=== PATIENT | male | born 1955 | race Caucasian/White ===

== ENCOUNTER 2023-05-16 12:22 | Observation (INO) ==
[2023-05-16] MEDS: Lactated Ringers 1000 ml BAG 1,000 ML IV ONE ×2 (13:29→14:58)
[2023-05-16 13:52] LABS: Hematocrit 31.4 % (38-53); Hemoglobin 10.4 g/dL (13.2-16.3); Mean Corpuscular Hemoglobin 28.1 pg (27-33); Mean Corpuscular Hgb Conc 33.2 g/dL (31-36); Mean Corpuscular Volume 84.5 fL (80-97); Mean Platelet Volume 7.7 fL (7.5-11.2); Platelet Count 767 10^3/uL (150-450); Red Blood Count 3.72 10^6/uL (4.06-5.63); Red Cell Distribution Width 15.8 % (12-17); White Blood Count 14.7 10^3/uL (3.6-10.2)
[2023-05-16 14:22] LABS: ABS Basophils 0.2 10^3/uL (0.0-0.1); ABS Eosinophils 3.8 10^3/uL (0.0-0.5); ABS Lymphocytes 3.5 10^3/uL (1.0-4.8); ABS Monocytes 0.8 10^3/uL (0.0-1.1); ABS Neutrophils 6.5 10^3/uL (1.5-7.6); ABS Nucleated RBC 0.04 10^3/ul; Albumin 2.2 g/dL (3.2-5.2); C Reactive Protein 71.02 mg/L (<8.01); Calcium 7.9 mg/dL (8.6-10.3); Creatinine, Serum 2.93 mg/dL (0.67-1.17); Eosinophil % 25.9 %; Globulin 2.3 g/dL (2-4); Lymphocyte % 23.5 %; Magnesium 1.9 mg/dL (1.9-2.7); Nucleated Red Blood Cells % 0.2 %/100WBC (0.0-0.8); Potassium 4.6 mmol/L (3.5-5.0); Total Bilirubin 0.4 mg/dL (0.2-1.0); Total Protein 4.5 g/dL (6.4-8.9); eGFR CKD-EPI 22.6 (>60)
[2023-05-16 18:21] LABS: Calcium 7.7 mg/dL (8.6-10.3); Creatinine, Serum 2.7 mg/dL (0.67-1.17); Potassium 4.6 mmol/L (3.5-5.0); eGFR CKD-EPI 24.9 (>60)
[2023-05-16] MEDS ORDERED: FLUOCINONIDE 0.05% TOPICAL PRN (18:43)
[2023-05-16] MEDS ORDERED: Albuterol HFA INHALER 8 gm MDI INH PRN (18:43)
[2023-05-16] MEDS: Lactated Ringers 1000 ml BAG 1,000 ML IV SCH (18:46)
[2023-05-16] MEDS: Triamcinolone 0.5% OINT 1 TUBE TOPICAL SCH (20:45)
[2023-05-16] MEDS: Heparin 5000 UNITS/ML 1 mL VIAL SUBCUT SCH (20:48)
[2023-05-17 00:35] LABS: Urine Appearance Clear; Urine Bilirubin Negative (Negative); Urine Blood Negative (Negative); Urine Color Yellow; Urine Glucose Negative (Negative); Urine Ketones Negative (Negative); Urine Nitrite Negative (Negative); Urine Protein Trace (Negative); Urine Specific Gravity 1.017 (1.002-1.030); Urine Urobilinogen Negative (Negative)
[2023-05-17 05:26] LABS: Hematocrit 28.2 % (38-53); Hemoglobin 9.5 g/dL (13.2-16.3); Mean Corpuscular Hemoglobin 28.5 pg (27-33); Mean Corpuscular Hgb Conc 33.8 g/dL (31-36); Mean Corpuscular Volume 84.2 fL (80-97); Mean Platelet Volume 7.9 fL (7.5-11.2); Platelet Count 696 10^3/uL (150-450); Red Blood Count 3.35 10^6/uL (4.06-5.63); Red Cell Distribution Width 16.4 % (12-17); White Blood Count 13.5 10^3/uL (3.6-10.2)
[2023-05-17 05:44] LABS: Calcium 8.1 mg/dL (8.6-10.3); Creatinine, Serum 2.69 mg/dL (0.67-1.17); Potassium 4.7 mmol/L (3.5-5.0)
[2023-05-17 05:58] LABS: ABS Basophils 0.2 10^3/uL (0.0-0.1); ABS Eosinophils 4.4 10^3/uL (0.0-0.5); ABS Lymphocytes 2.8 10^3/uL (1.0-4.8); ABS Monocytes 0.5 10^3/uL (0.0-1.1); ABS Neutrophils 5.6 10^3/uL (1.5-7.6); ABS Nucleated RBC 0.03 10^3/ul; Eosinophil % 32.9 %; Lymphocyte % 20.9 %; Nucleated Red Blood Cells % 0.2 %/100WBC (0.0-0.8)
[2023-05-17] MEDS: SPIRIVA Respimat (tiotropium) 2.5 mcg/inh Inhaler INH SCH (07:29)
[2023-05-17] MEDS: Aspirin EC 81 mg TAB.EC (enteric coated) PO SCH (09:04)
[2023-05-17] MEDS: Lactated Ringers 1000 ml BAG 1,000 ML IV ONE (09:50)
[2023-05-17 10:33] LABS: Direct Bilirubin 0.2 mg/dL (0.03-0.18); Globulin 2.1 g/dL (2-4); Indirect Bilirubin 0.2 mg/dL (0.3-1.0); Total Bilirubin 0.4 mg/dL (0.2-1.0); Total Protein 4.1 g/dL (6.4-8.9)
[2023-05-17] MEDS: Lactated Ringers 1000 ml BAG 1,000 ML IV SCH (12:07)
[2023-05-17] MEDS: Cetirizine 5 mg CHEW TAB PO SCH (21:04)
[2023-05-18 05:48] LABS: Hematocrit 30.7 % (38-53); Hemoglobin 10.2 g/dL (13.2-16.3); Mean Corpuscular Hemoglobin 28.1 pg (27-33); Mean Corpuscular Hgb Conc 33.2 g/dL (31-36); Mean Corpuscular Volume 84.6 fL (80-97); Mean Platelet Volume 7.7 fL (7.5-11.2); Platelet Count 718 10^3/uL (150-450); Red Blood Count 3.63 10^6/uL (4.06-5.63); Red Cell Distribution Width 16.6 % (12-17); White Blood Count 15.2 10^3/uL (3.6-10.2)
[2023-05-18 06:05] LABS: Calcium 7.8 mg/dL (8.6-10.3); Creatinine, Serum 2.43 mg/dL (0.67-1.17); Potassium 4.5 mmol/L (3.5-5.0); eGFR CKD-EPI 28.2 (>60)
[2023-05-18 07:08] LABS: ABS Basophils 0.2 10^3/uL (0.0-0.1); ABS Eosinophils 4.8 10^3/uL (0.0-0.5); ABS Lymphocytes 2.8 10^3/uL (1.0-4.8); ABS Monocytes 0.7 10^3/uL (0.0-1.1); ABS Neutrophils 6.8 10^3/uL (1.5-7.6); ABS Nucleated RBC 0.05 10^3/ul; Eosinophil % 31.2 %; Lymphocyte % 18.5 %; Nucleated Red Blood Cells % 0.3 %/100WBC (0.0-0.8)
[2023-05-18 14:05] VITALS: BP 112/71
== END 2023-05-18 14:20 | disposition home or self-care (01) ==
LOC: EDHOLD 12:22 → ED 12:22 → MED 17:05
PROVIDERS: ADMIT Internal Medicine; ATTEND Internal Medicine

== ENCOUNTER 2023-05-20 10:00 | Inpatient (IN) ==
[~2023-05-20 10:00] MED LIST: Rocuronium 50 mg VIAL 10 mg/ml 5 ml VIAL (50 mg) ONE; Succinylcholine 200 mg VIAL 20 mg/ml 10 ml VIAL (200 mg) ONE
[2023-05-20] MEDS: Lactated Ringers 1000 ml BAG 1,000 ML IV ONE ×3 (10:15→10:30)
[2023-05-20 10:27] LABS: ABS Basophils 0.1 10^3/uL (0.0-0.1); ABS Eosinophils 1.5 10^3/uL (0.0-0.5); ABS Lymphocytes 3.6 10^3/uL (1.0-4.8); ABS Monocytes 0.4 10^3/uL (0.0-1.1); ABS Neutrophils 7.7 10^3/uL (1.5-7.6); ABS Nucleated RBC 0.04 10^3/ul; Eosinophil % 11.1 %; Hematocrit 27.9 % (38-53); Hemoglobin 9.5 g/dL (13.2-16.3); Mean Corpuscular Hemoglobin 28.4 pg (27-33); Mean Corpuscular Hgb Conc 33.9 g/dL (31-36); Mean Corpuscular Volume 83.8 fL (80-97); Mean Platelet Volume 7.8 fL (7.5-11.2); Nucleated Red Blood Cells % 0.3 %/100WBC (0.0-0.8); Platelet Count 463 10^3/uL (150-450); Red Blood Count 3.33 10^6/uL (4.06-5.63); Red Cell Distribution Width 16.2 % (12-17); White Blood Count 13.3 10^3/uL (3.6-10.2)
[2023-05-20 10:46] LABS: Activated Partial Thrombo Time 44.2 seconds (26.0-38.0); INR 1.61 (0.83-1.13)
[2023-05-20] MEDS ORDERED: Norepinephrine 4 MG/250mL D5W 4,000 MCG/250 ML BAG IV ONE (10:56)
[2023-05-20] MEDS: Norepinephrine 4 MG/250mL D5W 4,000 MCG/250 ML BAG IV SCH (11:04)
[2023-05-20 11:05] LABS: Albumin 1.7 g/dL (3.2-5.2); Albumin/Globulin Ratio 0.9 (1-3); C Reactive Protein 168.87 mg/L (<8.01); Calcium 7.4 mg/dL (8.6-10.3); Creatinine, Serum 2.86 mg/dL (0.67-1.17); Globulin 1.8 g/dL (2-4); Potassium 4.4 mmol/L (3.5-5.0); Total Bilirubin 0.3 mg/dL (0.2-1.0); Total Protein 3.5 g/dL (6.4-8.9); eGFR CKD-EPI 23.2 (>60)
[2023-05-20] MEDS: CALCIUM GLUCONATE 1GM/50ML NS 1 GM/50 ML BAG IV ONE ×2 (11:24→12:26)
[2023-05-20 12:27] LABS: High Sensitivity Troponin 1 Hr 10 pg/mL (<20)
[2023-05-20] MEDS ORDERED: cefTRIAXone 2 GM ADDV.VIAL 2 GM in NS 0.9% 100 ml BAG 100 ML IV ONE (12:27)
[2023-05-20] MEDS: cefTRIAXone 2 gm/50 mL D5W 2 GM/50 ML BAG IV ONE (13:09)
[2023-05-20] MEDS: Ondansetron 4 mg VIAL 2 MG/ML 2 ml VIAL IV ONE (13:44)
[2023-05-20 14:43] LABS: TSH Ultra Thyroid Stim Horm 5.32 mcIU/mL (0.34-5.60)
[2023-05-20 14:44] LABS: Free T3 1.99 pg/mL (2.5-3.9)
[2023-05-20 14:45] LABS: Free T4 0.47 ng/dL (0.61-1.12)
[2023-05-20] MEDS ORDERED: Albuterol HFA INHALER 8 gm MDI INH PRN (15:38)
[2023-05-20] MEDS ORDERED: Vancomycin per Pharmacy 1 EA NOTE FOLLOW UP SCH (16:00)
[2023-05-20] MEDS: Hydrocortisone INJ 100 MG/2ML 2 ML VIAL IV ONE (17:01)
[2023-05-20] MEDS: Vancomycin 1,000 MG in NS 0.9% 250 ml 250 ML IVPB ONE (17:01)
[2023-05-20] MEDS: Enoxaparin 30 MG/0.3 ML SYR SUBCUT SCH (17:03)
[2023-05-20] MEDS: NF: Olopatadine 0.2% (NF) 1 DROP BTL BOTH EYES SCH (17:03)
[2023-05-20] MEDS: Cefepime 1 GM in Dextrose 1 GM/50 ML BAG IV SCH (17:11)
[2023-05-20 17:37] LABS: Urine Appearance Clear; Urine Bilirubin Negative (Negative); Urine Blood Trace (Negative); Urine Color Yellow; Urine Glucose Negative (Negative); Urine Ketones Negative (Negative); Urine Nitrite Negative (Negative); Urine Protein Negative (Negative); Urine Specific Gravity 1.014 (1.002-1.030); Urine Urobilinogen Negative (Negative)
[2023-05-20 18:10] LABS: Urine Bacteria 1+ /HPF (Absent); Urine Red Blood Cell 1+(3-5/hpf) /HPF (0-Trace); Urine White Blood Cell Trace(0-5/hpf) /HPF (0-Trace)
[2023-05-20] MEDS: Mometasone/Formoter 200/5 MDI INH SCH (20:26)
[2023-05-20] MEDS: Triamcinolone 0.5% OINT 1 TUBE TOPICAL SCH (20:37)
[2023-05-20] MEDS: RUXOLITINIB TOPICAL SCH (22:27)
[2023-05-20] MEDS: AZELASTINE INTRANASAL SCH (22:27)
[2023-05-21] MEDS: Norepinephrine 4 MG/250mL D5W 4,000 MCG/250 ML BAG IV SCH (00:06)
[2023-05-21 00:17] LABS: Venous Bicarbonate HCO3 18.7 mmol/L (24-28)
[2023-05-21] MEDS: Morphine 2 MG/ML SYRINGE IV ONE (03:20)
[2023-05-21] MEDS: Vancomycin Random Level NOTE FOLLOW UP ONE (04:28)
[2023-05-21 04:39] LABS: ABS Lymphocytes 2.5 10^3/uL (1.0-4.8); ABS Monocytes 0.3 10^3/uL (0.0-1.1); ABS Neutrophils 15.1 10^3/uL (1.5-7.6); ABS Nucleated RBC 0.02 10^3/ul; Hematocrit 29.4 % (38-53); Hemoglobin 9.8 g/dL (13.2-16.3); Lymphocyte % 13.9 %; Mean Corpuscular Hemoglobin 27.8 pg (27-33); Mean Corpuscular Hgb Conc 33.3 g/dL (31-36); Mean Corpuscular Volume 83.4 fL (80-97); Mean Platelet Volume 8.2 fL (7.5-11.2); Nucleated Red Blood Cells % 0.1 %/100WBC (0.0-0.8); Platelet Count 539 10^3/uL (150-450); Red Blood Count 3.52 10^6/uL (4.06-5.63); Red Cell Distribution Width 16.8 % (12-17)
[2023-05-21 05:11] LABS: Calcium 7.1 mg/dL (8.6-10.3); Creatinine, Serum 2.82 mg/dL (0.67-1.17); Magnesium 1.5 mg/dL (1.9-2.7); Potassium 4.9 mmol/L (3.5-5.0); Vancomycin Random 10.8 mcg/mL; eGFR CKD-EPI 23.6 (>60)
[2023-05-21] MEDS: Magnesium Sulfate 2 gm BAG 2 GM/50 ML BAG IVPB ONE ×2 (05:58→12:12)
[2023-05-21] MEDS: SPIRIVA Respimat (tiotropium) 2.5 mcg/inh Inhaler INH SCH (08:28)
[2023-05-21] MEDS: Vancomycin 1,000 MG - ONCE IVPB ONE (08:29)
[2023-05-21] MEDS: Hydrocortisone INJ 100 MG/2ML 2 ML VIAL IV SCH (08:32)
[2023-05-21] MEDS: DUPILUMAB 300 MG/2 ML SUBCUT SCH (08:33)
[2023-05-21] MEDS: CYANOCOBALAMIN 100 MCG PO SCH (08:33)
[2023-05-21] MEDS: Aspirin EC 81 mg TAB.EC (enteric coated) PO SCH (08:43)
[2023-05-21] MEDS: NS 0.9% 1000 ml BAG 1,000 ML IV SCH ×4 (08:49→13:57)
[2023-05-21] MEDS ORDERED: Zosyn per Pharmacy NOTE FOLLOW UP SCH (09:00)
[2023-05-21 09:03] LABS: PCO2 Arterial 27 mmHg (35-45); PO2 Arterial 67 mmHg (80-100)
[2023-05-21] MEDS: Piperacillin/Tazobac 3.375 BAG 3.375 GM/100 ML BAG IV ONE (10:47)
[2023-05-21 11:05] LABS: Albumin 1.7 g/dL (3.2-5.2); Albumin/Globulin Ratio 0.9 (1-3); Direct Bilirubin 0.1 mg/dL (0.03-0.18); Indirect Bilirubin 0.1 mg/dL (0.3-1.0); Total Bilirubin 0.2 mg/dL (0.2-1.0); Total Protein 3.7 g/dL (6.4-8.9)
[2023-05-21] MEDS: NS 0.9% 500 ml BAG 500 ML IV ONE (11:26)
[2023-05-21] MEDS ORDERED: Acetaminophen IV 1 GM/100ML 1,000 MG/100 ML BAG IV PRN (11:36)
[2023-05-21] MEDS: Morphine 4 MG/ML VIAL (1 ml) IV ONE (12:12)
[2023-05-21] MEDS: OLOPATADINE 0.7% BOTH EYES SCH (12:13)
[2023-05-21 15:21] LABS: ABS Lymphocytes 4.4 10^3/uL (1.0-4.8); ABS Monocytes 0.8 10^3/uL (0.0-1.1); ABS Neutrophils 15.8 10^3/uL (1.5-7.6); Eosinophil % 0.1 %; Hematocrit 25.1 % (38-53); Hemoglobin 8.4 g/dL (13.2-16.3); Mean Corpuscular Hemoglobin 28.2 pg (27-33); Mean Corpuscular Hgb Conc 33.4 g/dL (31-36); Mean Corpuscular Volume 84.4 fL (80-97); Mean Platelet Volume 8.5 fL (7.5-11.2); Nucleated Red Blood Cells % 0.5 %/100WBC (0.0-0.8); Platelet Count 556 10^3/uL (150-450); Red Blood Count 2.98 10^6/uL (4.06-5.63); Red Cell Distribution Width 16.5 % (12-17)
[2023-05-21] MEDS ORDERED: Phytonadione SUBCUT/IM Adult 10 MG/ML AMP (IM or SQ not preferred route) IM ONE (15:26)
[2023-05-21 15:43] LABS: Activated Partial Thrombo Time 41.4 seconds (26.0-38.0); INR 1.59 (0.83-1.13)
[2023-05-21] MEDS: Midazolam PREMIXBAG 1 MG/ML NS 100 ML IV SCH (15:55)
[2023-05-21 16:17] LABS: Calcium 6.9 mg/dL (8.6-10.3); Creatinine, Serum 3.31 mg/dL (0.67-1.17); eGFR CKD-EPI 19.5 (>60)
[2023-05-21] MEDS: Pantoprazole 80 mg in NS BAG 80 MG/250 ML BAG IV ONE (16:58)
[2023-05-21] MEDS: Midazolam 2 mg/2 ml VIAL 1 mg/ml 2 ml VIAL (2 mg) IV SLOW PU ONE ×2 (17:14)
[2023-05-21] MEDS: Midazolam PREMIXBAG 1 MG/ML NS 100 ML IV ONE (17:14)
[2023-05-21] MEDS: Rocuronium 50 mg VIAL 10 mg/ml 5 ml VIAL (50 mg) ONE (17:14)
[2023-05-21] MEDS: Etomidate 20 mg/10 ml 2 MG/ML 10 ml VIAL IV ONE (17:14)
[2023-05-21] MEDS: Succinylcholine 200 mg VIAL 20 mg/ml 10 ml VIAL (200 mg) ONE (17:14)
[2023-05-21] MEDS: ZOSYN 3.375 GM Q8H per EXTENDED INFUSION IV SCH (17:19)
[2023-05-21] MEDS: Phytonadione 10 mg in 50 mL NS over 30 min IV ONE (18:32)
[2023-05-21 20:14] LABS: Hematocrit 27.7 % (38-53); Hemoglobin 9.2 g/dL (13.2-16.3)
[2023-05-21 21:03] VITALS: BP 111/48
[2023-05-21] MEDS: Dextran 70/Hypromellose Tears Eye Drops 15 ml BTL (for Artificials Tears) BOTH EYES PRN (21:50)
[2023-05-21] MEDS ORDERED: Chlorhexidine MOUTHWASH 0.12% 15 ML UDC SWISH SPIT PRN (23:06)
[2023-05-22 00:55] LABS: Hematocrit 28.4 % (38-53); Hemoglobin 9.4 g/dL (13.2-16.3)
[2023-05-22] MEDS: Morphine ORAL CONCENTRATE 5 MG/0.25 ML ORAL.SYRIN PO PRN (01:43)
[2023-05-22] MEDS: Midazolam 2 mg/2 ml VIAL 1 mg/ml 2 ml VIAL (2 mg) IV SLOW PU PRN (01:46)
[2023-05-22] MEDS: Atropine 1% (ORAL/SL) 15 ML BTL SL PRN (02:56)
[2023-05-22] MEDS: Morphine 2 MG/ML SYRINGE IV PRN (02:56)
[2023-05-22] MEDS: Vancomycin Random Level NOTE FOLLOW UP ONE (05:38)
[2023-05-22] MEDS ORDERED: Lorazepam PYXIS KEY PRN (16:47)
[2023-05-22] MEDS ORDERED: LORazepam 2 mg VIAL 1 ml IV PUSH PRN ×2 (16:47→16:51)
[2023-05-22] MEDS: Morphine 10 MG/ML VIAL (1 ml) IV PRN (17:02)
[2023-05-23] MEDS ORDERED: LORazepam 2 mg VIAL 1 ml IV PUSH PRN (07:39)
[2023-05-23] MEDS ORDERED: Atropine 1% (ORAL/SL) 15 ML BTL SL PRN (07:39)
[2023-05-23] MEDS ORDERED: Ondansetron ODT 4 mg TAB 4 MG TAB SL PRN (07:39)
== END 2023-05-23 09:35 | disposition expired | DRG 871 ==
LOC: ED 10:00 → EDHOLD 14:24 → ICU 15:21
PROVIDERS: ADMIT Internal Medicine Pulmonary Disease; ATTEND Student in an Organized Health Care Education/Training Program